=== PATIENT | male | born 1985 | race Caucasian/White ===

== ENCOUNTER 2018-01-24 09:09 | Emergency (ER) | payer SELFPAY ==
[2018-01-24] MEDS ORDERED: NA CHLORIDE 0.9% 1,000 ML ONE ×2 (09:33→09:55)
[2018-01-24 09:56] LABS: Urine Blood TRACE (NEG); Urine Glucose NEGATIVE (NEG); Urine Protein NEGATIVE (NEG); Urine pH 5.5 (5.0-7.0)
[2018-01-24 10:05] LABS: Absolute Lymphocytes (CBC) 1.9 K/uL (0.7-4.9); Absolute Monocytes 0.7 K/uL (0.1-1.3); Absolute Neutrophil 4.3 K/uL (1.8-8.0); Basophils % 0.3 % (0-1.3); Eosinophils % 2.2 % (0-4.4); Hematocrit 47.5 % (39.6-49.0); Lymphocytes % 27.2 % (15.3-44.8); MCH 30.7 pg (27.0-35.0); RBC Red Blood Cell Count 5.16 M/uL (4.33-5.43)
[2018-01-24 10:11] LABS: Bicarbonate 31 mEq/L (21-31); Glucose Level 69 mg/dL (65-120); Sodium Level 138 mEq/L (135-145)
[2018-01-24 10:18] LABS: ALT/SGPT 33 IU/L (10-60); AST/SGOT 31 IU/L (10-42); Albumin 4.7 g/dL (3.2-5.5); Alkaline Phosphatase 84 IU/L (42-121); BUN Blood Urea Nitrogen 17 mg/dL (6-20); Bilirubin Direct < 0.1 mg/dL (0-0.2); Bilirubin Total 0.4 mg/dL (0.3-1.2); Creatine Phosphokinase 86 IU/L (22-269); Protein, Total 8.2 g/dL (6.0-8.3)
[2018-01-24 10:21] LABS: CKMB Creatine Kinase MB 2.2 ng/ml (0.3-4.0)
--- NOTE | 2018-01-24 10:31 | RAD REPORT ---
EXAM DESCRIPTION: RAD - Chest Single View - 01/24/2018 10:06 am CLINICAL HISTORY: Cough, weakness and dizziness, shortness of breath COMPARISON: None. TECHNIQUE: AP portable chest image was obtained 0958 hours . FINDINGS: Lungs are clear. Heart and vasculature are normal. No measurable pleural effusion and no p neumothorax. No gross bony abnormality seen. No acute aortic findings suspected. IMPRESSION: No acute cardiopulmonary process.
--- NOTE | 2018-01-24 10:52 | ER ---
Nurse's Notes [facility] Name: Aston Conti Age: 32 yrs Sex: Male : 1985 Arrival Date: 01/24/2018 Time: 09:12 Bed 14 Private MD: Unknown, Unknown Diagnosis: Dehydration Presentation: 01/24 09:20 Presenting complaint: Patient states: Lightheaded and dizzy after working outside all hb day . Pt also reports N/V over the weekend but has resolved. Transition of care: patient was not received from another setting of care. Onset of symptoms was January 20, 2018. Risk Assessment: Do you want to hurt yourself or someone else? Patient reports no desire to harm self or others. Initial Sepsis Screen: Does the patient meet any 2 criteria? No. Patient's initial sepsis screen is negative. Does the patient have a suspected source of infection? No. Patient's initial sepsis screen is negative. Care prior to arrival: None. 09:20 Method Of Arrival: Ambulatory 09:20 Acuity: SONG 3 hb Historical: - Allergies: 09:22 No Known Allergies; hb - Immunization history:: Adult Immunizations up to date. - Social history:: Smoking status: Patient uses tobacco products, smokes one-half pack cigarettes per day. - Ebola Screening: : No symptoms or risks identified at this time. Screenin:33 Abuse screen: Denies threats or abuse. Denies injuries from another. Nutritional ph screening: No deficits noted. Tuberculosis screening: No symptoms or risk factors identified. Fall Risk None identified. Assessment: 09:30 General: Appears in no apparent distress. comfortable, slender, Behavior is calm, ph cooperative, appropriate for age, Denies fever, feeling ill. Pain: Denies pain. Neuro: Level of Consciousness is awake, alert, obeys commands, Oriented to person, place, time, situation, Reports dizziness, general weakness. Cardiovascular: Capillary refill < 3 seconds in bilateral fingers Patient's skin is warm and dry. Respiratory: Airway is patent Respiratory effort is even, unlabored, Respiratory pattern is regular, symmetrical. GI: Reports nausea, vomiting, since Wednesday. Derm: Skin is intact, Skin is pink, warm \T\ dry. Musculoskeletal: Circulation, motion, and sensation intact. Range of motion: intact in all extremities. 10:32 Reassessment: Patient appears in no apparent distress at this time. Patient and/or ph family updated on plan of care and expected duration. Pain level reassessed. Patient is alert, oriented x 3, equal unlabored respirations, skin warm/dry/pink. Pt resting quietly, awaiting lab and radiology results, family at bedside Patient denies pain at this time. 11:15 Reassessment: Patient appears in no apparent distress at this time. Patient and/or ph family updated on plan of care and expected duration. Pain level reassessed. Patient is alert, oriented x 3, equal unlabored respirations, skin warm/dry/pink. Pt resting quietly, awaiting completion of IV fluids before d/c. Vital Signs: 09:22 BP 95 / 73; Pulse 88; Resp 16; Temp 97.7; Pulse Ox 100% on R/A; Weight 77.11 kg; Height hb 6 ft. 3 in. (190.50 cm); Pain 0/10; 10:34 BP 114 / 79; Pulse 65; Resp 16; Pulse Ox 100% on R/A; ph 11:18 BP 96 / 82; Pulse 73; Resp 18; Temp 97.9; Pulse Ox 100% on R/A; ph 09:22 Body Mass Index 21.25 (77.11 kg, 190.50 cm) hb ED Course: 09:12 Patient arrived in ED. sb2 09:12 Unknown, Unknown is Private Physician. sb2 09:21 Triage completed. hb 09:22 Arm band placed on left wrist. hb 09:28 Josh Brooks NP is PHCP. pm1 09:28 Franklyn Casey MD is Attending Physician. pm1 09:32 Charleen Contreras, RN is Primary Nurse. ph 09:52 EKG done, by field artillery targeting technician. reviewed by Franklyn Casey MD. sm3 10:06 XRAY Chest (1 view) In Process Unspecified. EDMS 10:33 Patient has correct armband on for positive identification. Placed in gown. Bed in low ph position. Call light in reach. Side rails up X 1. Pulse ox on. NIBP on. Warm blanket given. Pillow given. 11:18 No provider procedures requiring assistance completed. ph 11:44 IV discontinued, intact, bleeding controlled, No redness/swelling at site. Pressure ph dressing applied. Administered Medications: 09:50 Drug: NS 0.9% 1000 ml Route: IV; Rate: 1 bolus; Site: right antecubital; ph 11:40 Follow up: Response: No adverse reaction; IV Status: Completed infusion ph 10:03 Drug: NS 0.9% 1000 ml Route: IV; Rate: 1 bolus; Site: right antecubital; ph 11:40 Follow up: Response: No adverse reaction; IV Status: Completed infusion ph Outcome: 10:52 Discharge ordered by MD. pm1 11:43 Discharged to home ambulatory, with family. ph 11:43 Condition: improved 11:43 Discharge instructions given to patient, family, Instructed on discharge instructions, follow up and referral plans. Demonstrated understanding of instructions, follow-up care. 11:44 Patient left the ED. ph Signatures: Dispatcher [employer] EDCharleen Zamorano RN RN Josh Brooks, NILE DIGITAL MEDIA ANALYST pm1 Homa Donovan RN RN Pilar Rangel sb2 Carmelina Torres sm3 Corrections: (The following items were deleted from the chart) 09:23 09:20 Presenting complaint: Patient states: Lightheaded and dizzy after working outside hb all day hb
--- NOTE | 2018-01-24 10:52 | EDPHYS ---
Physician Documentation [facility] Name: Aston Conti Age: 32 yrs Sex: Male : 1985 Arrival Date: 01/24/2018 Time: 09:12 Bed 14 Private MD: Unknown, Unknown ED Physician Franklyn Casey HPI: 01/24 10:00 This 32 yrs old Male presents to ER via Ambulatory with complaints of Heat pm1 Exposure. 10:00 Patient with complaints of heat exposure on , 4 days ago. Patient works in as pm1 hazardous waste technician. He was working in an attic too long on and felt hot and dehydrated. Patient had some nausea and vomiting that resolved a few days ago. No chest pain or shortness of breath. No headache. No urinary symptoms. Historical: - Allergies: 09:22 No Known Allergies; hb - Immunization history:: Adult Immunizations up to date. - Social history:: Smoking status: Patient uses tobacco products, smokes one-half pack cigarettes per day. - Ebola Screening: : No symptoms or risks identified at this time. ROS: 10:00 Constitutional: Negative for fever, chills, and weight loss, Eyes: Negative for injury, pm1 pain, redness, and discharge, ENT: Negative for injury, pain, and discharge, Neck: Negative for injury, pain, and swelling, Cardiovascular: Negative for chest pain, palpitations, and edema, Respiratory: Negative for shortness of breath, cough, wheezing, and pleuritic chest pain, Abdomen/GI: Negative for abdominal pain, nausea, vomiting, diarrhea, and constipation, Back: Negative for injury and pain, MS/Extremity: Negative for injury and deformity, Skin: Negative for injury, rash, and discoloration, Neuro: Negative for headache, weakness, numbness, tingling, and seizure. Exam: 10:00 Constitutional: This is a well developed, well nourished patient who is awake, alert, pm1 and in no acute distress. Head/Face: Normocephalic, atraumatic. Neck: Trachea midline, no thyromegaly or masses palpated, and no cervical lymphadenopathy. Supple, full range of motion without nuchal rigidity, or vertebral point tenderness. No Meningismus. Chest/axilla: Normal chest wall appearance and motion. Nontender with no deformity. No lesions are appreciated. Cardiovascular: Regular rate and rhythm with a normal S1 and S2. No gallops, murmurs, or rubs. No pulse deficits. Respiratory: Lungs have equal breath sounds bilaterally, clear to auscultation and percussion. No rales, rhonchi or wheezes noted. No increased work of breathing, no retractions or nasal flaring. Abdomen/GI: Soft, non-tender, with normal bowel sounds. No distension or tympany. No guarding or rebound. No evidence of tenderness throughout. Back: No spinal tenderness. No costovertebral tenderness. Full range of motion. Skin: Warm, dry with normal turgor. Normal color with no rashes, no lesions, and no evidence of cellulitis. MS/ Extremity: Pulses equal, no cyanosis. Neurovascular intact. Full, normal range of motion. Vital Signs: 09:22 BP 95 / 73; Pulse 88; Resp 16; Temp 97.7; Pulse Ox 100% on R/A; Weight 77.11 kg; Height hb 6 ft. 3 in. (190.50 cm); Pain 0/10; 10:34 BP 114 / 79; Pulse 65; Resp 16; Pulse Ox 100% on R/A; ph 11:18 BP 96 / 82; Pulse 73; Resp 18; Temp 97.9; Pulse Ox 100% on R/A; ph 09:22 Body Mass Index 21.25 (77.11 kg, 190.50 cm) hb MDM: 09:29 Patient medically screened. pm1 10:45 ED course: Patient fells better after fluid infusion and feels ready to go home. pm1 10:51 Data reviewed: vital signs. Data interpreted: Pulse oximetry: on room air is 100 %. pm1 Interpretation: normal. Counseling: I had a detailed discussion with the patient and/or guardian regarding: the historical points, exam findings, and any diagnostic results supporting the discharge/admit diagnosis, lab results, radiology results, the need for outpatient follow up, to return to the emergency department if symptoms worsen or persist or if there are any questions or concerns that arise at home. 01/24 09:31 Order name: Basic Metabolic Panel; Complete Time: 10:24 [facility] 01/24 09:31 Order name: BNP; Complete Time: 10:24 [facility] 01/24 09:31 Order name: CBC with Diff; Complete Time: 10:24 [facility] 01/24 09:31 Order name: Ckmb; Complete Time: 10:24 [facility] 01/24 09:31 Order name: CPK; Complete Time: 10:24 [facility] 01/24 09:31 Order name: LFT's; Complete Time: 10:24 [facility] 01/24 09:31 Order name: Magnesium; Complete Time: 10:24 [facility] 01/24 09:31 Order name: Troponin (emerg Dept Use Only); Complete Time: 10:24 [facility] 01/24 09:31 Order name: XRAY Chest (1 view); Complete Time: 10:35 [facility] 01/24 09:31 Order name: EKG; Complete Time: 09:32 [facility] 01/24 09:31 Order name: Cardiac monitoring; Complete Time: 09:32 [facility] 01/24 09:44 Order name: Urine Dipstick--Ancillary (enter results); Complete Time: 09:59 01/24 09:31 Order name: IV Saline Lock; Complete Time: 10:03 [facility] 01/24 09:31 Order name: Labs collected and sent; Complete Time: 10:03 [facility] 01/24 09:31 Order name: O2 Per Protocol; Complete Time: 09:33 [facility] 01/24 09:31 Order name: O2 Sat Monitoring; Complete Time: 09:33 [facility] 01/24 09:31 Order name: Urine Dipstick-Ancillary (obtain specimen); Complete Time: 09:33 [facility] Administered Medications: 09:50 Drug: NS 0.9% 1000 ml Route: IV; Rate: 1 bolus; Site: right antecubital; ph 11:40 Follow up: Response: No adverse reaction; IV Status: Completed infusion ph 10:03 Drug: NS 0.9% 1000 ml Route: IV; Rate: 1 bolus; Site: right antecubital; ph 11:40 Follow up: Response: No adverse reaction; IV Status: Completed infusion ph Disposition: 01/25 10:48 Co-signature as Attending Physician, Franklyn Casey MD I agree with the assessment and [facility] plan of care. Disposition: 01/24/18 10:52 Discharged to Home. Impression: Dehydration. - Condition is Stable. - Discharge Instructions: Dehydration, Adult, Rehydration, Adult. - Medication Reconciliation Form, Thank You Letter form. - Follow up: Emergency Department; When: As needed; Reason: Worsening of condition. Follow up: Private Physician; When: 2 - 3 days; Reason: Recheck today's complaints, Continuance of care, Re-evaluation by your physician. - Problem is new. - Symptoms have improved. Signatures: Dispatcher [employer] EDMS Franklyn Casey, Charleen Henry MD, cha, RN RN ph Josh Brooks, COSTUME RENTAL CLERK COSTUME RENTAL CLERK pm1 Homa Donovan RN RN Corrections: (The following items were deleted from the chart) 01/24 11:44 10:52 01/24/2018 10:52 Discharged to Home. Impression: Dehydration. Condition is ph Stable. Forms are Medication Reconciliation Form, Thank You Letter, Antibiotic Education, Prescription Opioid Use. Follow up: Emergency Department; When: As needed; Reason: Worsening of condition. Follow up: Private Physician; When: 2 - 3 days; Reason: Recheck today's complaints, Continuance of care, Re-evaluation by your physician. Problem is new. Symptoms have improved. pm1
[2018-01-24 12:00] VITALS: O2SAT 100
[2018-01-24 12:02] VITALS: BP 96/82; TEMP 97.9
--- NOTE | 2018-01-24 16:11 | EKG ---
Test Date: 2018-01-24 Test Time: 09:52:29 Spa Director/Finance: EILEEN MEASUREMENT RESULTS: Intervals: Rate: 67 FL: 166 QRSD: 94 QT: 388 QTc: 409 [place]: P: 77 FL: 166 QRS: 70 T: 71 INTERPRETIVE STATEMENTS: Normal sinus rhythm with sinus arrhythmia Normal ECG No previous ECG available for comparison Electronically Signed On 01-24-18 16:11:10 CDT by Kole Oseguera
== END 2018-01-24 11:44 | disposition home or self-care (01) ==
LOC: ER 09:09
DX: E86.0 Dehydration (principal); F17.210 Nicotine dependence, cigarettes, uncomplicated
CPT/HCPCS: 36415; 71045; 80048; 80076; 81003; 82550; 82553; 83735; 83880; 84484; 85025; 93005; 96360; 96361; 99284; J7030

== ENCOUNTER 2022-04-30 13:28 | Emergency (ER) | payer OTHER ==
--- OUTSIDE RECORDS SUMMARY | 2022-04-30 13:31 | XMS REPORT | Continuity of Care Document ---
:1985 Author Organization [facility] t Address [address] [place] [address] Care Team Providers Name Role Phone [facility], [facility] [facility] Primary Care Physician Unavailable Johanne Courtney Attending Clinician JOHANNE COUGHLIN Attending Clinician Unavailable JOHANNE COUGHLIN Admitting Clinician Unavailable Payers Payer Name Policy Type Policy Number Effective Date Expiration Date S ource Problems Condition Condition Condition Status Onset Resolution Last Treating Co mments Source Name Details Category Date Date Treatment Clinician Date No known No known Disease Unive rs active active ity of problems problems [facility] Allergies, Adverse Reactions, Alerts Allergy Allergy Status Severity Reaction(s) Onset Inactive Treating Comm ents Source Name Type Date Date Clinician NO KNOWN Drug Active Univers ALLERGIE Class ity of S [facility] Social History Social Habit Start Date Stop Date Quantity Comments Source Exposure to Not sure [facility] SARS-CoV-2 (event) Medica l Branch Sex Assigned At [birth year] [facility] 00:00:00 00:00:00 [facility] Smoking Status Start Date Stop Date Source Unknown if ever smoked [facility] Medications Ordered Filled Start Stop Current Ordering Indication Dosage Frequency Signature Comments Components Source Medication Medication Date Date Medication? Clinician (SIG) Name Name penicillin 2021- No 1.210 1.2 Unive rs g 2-18 02-18 Million ity of benzathine 01:45[place] 01[place]01 [place] (BICILLIN 00 :00 Intramuscu Medi keshav L-A) lar, ONCE, Branch injection 1 dose, On 1.2 Million Nano Units 10/02/21 at 1945, CHUCKIE
Re ason for Anti-Infec tive: Documented Infection< br>Documen reese Infection Site: HEENT
D uration of Therapy: 7 days ondansetron No 4mg 4 mg, Univ ers (ZOFRAN-ODT 10-03 Oral, ity of ) 00:45: 23:46 ONCE, 1 [place] disintegrat 00 :00 dose, On [facility] ing tablet Nano Branch 4 mg 10/02/21 at 1845, CHUCKIE acetaminoph No 1000mg 1,000 mg, Univers en 10-03 Oral, ity of (TYLENOL) 00:45: 23:46 ONCE, [place] tablet 00 :00 dose, On Medical 1,000 mg Nano Branch 10/02/21 at 1845, CHUCKIE ibuprofen No 800mg 800 mg, Uni vers (IBU) 10-03 Oral, ity of tablet 800 00:45: 23:46 ONCE, 1 [place] as mg 00 :00 dose, On Medical Nano Branch 10/02/21 at 1845, CHUCKIE oseltamivir 2021- No [id number] 75mg Take 1 Univers 75 mg 10-02 capsule by ity of capsule 00:00: 05:59 mouth 2 [place] 00 :00 (two) Medical times [place] daily for 5 days. Vital Signs Vital Name Observation Time Observation Value Comments Source Systolic blood 2021-10-03 01:04:20 91 [facility]Hg[facility] Diastolic blood 2021-10-03 01:04:20 57 mm[Hg] [facility] Heart rate 2021-10-03 01:04:20 92 /min [facility] Body temperature 2021-10-03 01:04:20 38.39 Li [facility] Respiratory rate 2021-10-03 01:04:20 20 /min [facility] Oxygen saturation in 2021-10-03 01:04:20 96 /min [facility] Arterial blood by [facility] Pulse oximetry Branch Body height 2021-10-02 23:11:00 193 cm [facility] Body weight 2021-10-02 23:11:00 90.719 kg [facility] BMI 2021-10-02 23:11:00 24.34 kg/m2 [facility] Procedures Procedure Date / Time Performed Performing Clinician Sourc e XR CHEST 2 VW 2021-10-03 00:16:32 Johanne Coughlin [facility] RAPID STREP SCREEN 2021-10-02 23:48:00 Johanne Coughlin [facility] FOR GROUP A [facility] RAPID INFLUENZA A/B 2021-10-02 23:48:00 Johanne Coughlin [facility] COVID-19 (ID NOW 2021-10-02 23:48:00 Johanne Coughlin [facility] RAPID TESTING) [facility] Encounters Start End Encounter Admission Attending Care Care Encounter Source Date/Time Date/Time Type Type Clinicians Facility Department ID 2021-10-02 2021-10-02 Emergency Madyson [facility] [id number] Univers 17:16:00 19:24:00 Johanne MATTHEWS [id number] i [facility] [id number] [facility] [id number] [facility] 084 Branch 2021-10-02 2021-10-02 Emergency X MADYSON [facility] ERT [id number] Univers 17:16:00 19:24:00 JOHANNE mena [facility] Results This patient has no known results.
[2022-04-30] MEDS ORDERED: LIDOCAINE 2% W/EPI 1:200,000 MPF 20 ML VIAL IM ONE (15:34)
--- NOTE | 2022-04-30 16:00 | EDPHYS ---
Physician Documentation [facility] Name: Aston Conti Age: 37 yrs Sex: Male : 1985 Arrival Date: 04/30/2022 Time: 13:29 Bed Treatment Private MD: ED Physician Franklyn Casey HPI: 04/30 14:32 This 37 yrs old Male presents to ER via Ambulatory with complaints of Insect Bite. cp 14:32 The patient presents with an abscess of the anterior aspect of left ankle. cp 14:32 Description: erythematous, swollen. Onset: The symptoms/episode began/occurred 5 day(s) cp ago. Possible cause(s): spider bite. Associated signs and symptoms: The patient has no apparent associated signs or symptoms. Severity of symptoms: in the emergency department the symptoms are unchanged, despite home interventions. Historical: - Allergies: 14:09 No Known Allergies; tw2 - Home Meds: 14:09 None [Active]; tw2 - PMHx: 14:09 None; tw2 - PSHx: 14:09 colon surgery; tw2 - Immunization history:: Last tetanus immunization: < 5 years ago. - Social history:: Smoking status: Patient reports the use of cigarette tobacco products, smokes one-half pack cigarettes per day. ROS: 14:35 Skin: Positive for abscess, of the anterior aspect of left ankle. cp 14:35 Constitutional: Negative for body aches, chills, fever, poor PO intake. cp 14:35 Cardiovascular: Negative for chest pain, palpitations. cp 14:35 Respiratory: Negative for cough, shortness of breath, wheezing. 14:35 Abdomen/GI: Negative for abdominal pain, nausea, vomiting, and diarrhea. 14:35 All other systems are negative. Exam: 14:40 Constitutional: The patient appears in no acute distress, alert, awake, non-toxic, well cp developed, well nourished. 14:40 Head/Face: Normocephalic, atraumatic. cp 14:40 Chest/axilla: Inspection: normal. 14:40 Cardiovascular: Rate: normal. 14:40 Respiratory: the patient does not display signs of respiratory distress, Respirations: normal, no use of accessory muscles, no retractions. 14:40 Abdomen/GI: Inspection: abdomen appears normal. 14:40 Skin: abscess, that is small, of the anterior aspect of left ankle, with mild surrounding erythema. Vital Signs: 14:07 BP 118 / 64; Pulse 76; Resp 17; Temp 98.6(TE); Pulse Ox 100% on R/A; Weight 81.65 kg tw2 (R); Height 6 ft. 4 in. (193.04 cm); 16:05 BP 121 / 68; Pulse 78; Resp 18; Pulse Ox 100% ; kb3 14:07 Body Mass Index 21.91 (81.65 kg, 193.04 cm) tw2 MDM: 14:49 Patient medically screened. [facility] 16:00 Data reviewed: vital signs, nurses notes. cp 16:00 Counseling: I had a detailed discussion with the patient and/or guardian regarding: the cp historical points, exam findings, and any diagnostic results supporting the discharge/admit diagnosis, to return to the emergency department if symptoms worsen or persist or if there are any questions or concerns that arise at home. Response to treatment: the patient's symptoms have mildly improved after treatment, and as a result, I will discharge patient. ED course: attempt to drain area unsuccessful as no purulent drainage expressed. Will discharge to home for continued monitoring. 04/30 14:58 Order name: I\T\D Setup; Complete Time: 15:59 cp Administered Medications: 15:40 Drug: Lidocaine-Epinephrine -1%: (1:100,000) 5 ml {Note: Administered by Franklyn RODRIGUEZ kb3 during I\T\D procedure.} Volume: 20 ml; Route: Infiltration; Disposition Summary: 04/30/22 16:00 Discharge Ordered Location: Home cp Problem: new cp Symptoms: have improved cp Condition: Stable cp Diagnosis - Cellulitis of left lower limb - left ankle cp Followup: cp - With: Private Physician - When: 1 - 2 days - Reason: Worsening of condition Discharge Instructions: - Discharge Summary Sheet cp - Cellulitis, Adult cp Forms: - Medication Reconciliation Form cp - Thank You Letter cp - Antibiotic Education cp - Prescription Opioid Use cp Prescriptions: - Bactrim DS 800-160 mg Oral Tablet - take 1 tablet by ORAL route every 12 hours for 10 days; 20 tablet; Refills: 0, cp Product Selection Permitted Signatures: Franklyn Casey MD MD cha Page, Corey, PA PA cp Wise, Tara, RN RN tw2 Carlo, Khushi, RN RN kb3
--- NOTE | 2022-04-30 16:00 | ER ---
Nurse's Notes [facility] Name: Aston Conti Age: 37 yrs Sex: Male : 1985 Arrival Date: 04/30/2022 Time: 13:29 Bed Treatment Private MD: Diagnosis: Cellulitis of left lower limb-left ankle Presentation: 04/30 14:07 Chief complaint: Patient states: i have this spot on my LEFT ankle. i need to get it tw2 lanced open. its been going on 5 days. we were working in an attic and i think it was a spider. when it happened you could see the puncture site. i have been putting Hylans drawing salve on it. Coronavirus screen: At this time, the client does not indicate any symptoms associated with coronavirus-19. Ebola Screen: Patient denies travel to an Ebola-affected area in the 21 days before illness onset. Initial Sepsis Screen: Does the patient meet any 2 criteria? No. Patient's initial sepsis screen is negative. Does the patient have a suspected source of infection? No. Patient's initial sepsis screen is negative. Risk Assessment: Do you want to hurt yourself or someone else? Patient reports no desire to harm self or others. Onset of symptoms was April 30, 2022. 14:07 Method Of Arrival: Ambulatory tw2 14:07 Acuity: SONG 4 tw2 Triage Assessment: 14:10 Bite description: bite sustained to anterior aspect of left ankle by a spider, animal tw2 information: vaccination(s) is not applicable. General: Appears in no apparent distress. Behavior is calm, cooperative, appropriate for age. Pain: Complains of pain in anterior aspect of left ankle. Historical: - Allergies: 14:09 No Known Allergies; tw2 - Home Meds: 14:09 None [Active]; tw2 - PMHx: 14:09 None; tw2 - PSHx: 14:09 colon surgery; tw2 - Immunization history:: Last tetanus immunization: < 5 years ago. - Social history:: Smoking status: Patient reports the use of cigarette tobacco products, smokes one-half pack cigarettes per day. Screenin:30 Abuse screen: Denies threats or abuse. Denies injuries from another. Nutritional kb3 screening: No deficits noted. Tuberculosis screening: No symptoms or risk factors identified. Fall Risk None identified. Assessment: 14:30 General: Appears in no apparent distress. comfortable, Behavior is calm, cooperative, kb3 Received care of pt from [facility] without distress. Pt reports he was stung on the left ankle by an insect, possibly a spider while working in an attic 5 days ago. Pt states he has been cleaning the wound and putting a Meet on it at home. 0.5cm round wound with scant amount of yellow drainage surrounded by a quarter-sized area of purple bruising noted to the anterior aspect of the left ankle. Pt reports he squeezed it at home to drain pus over the last 5 days.. 14:30 Derm: Skin is intact, Skin is pink, warm \T\ dry. Abscess located on dorsum of left foot kb3 is quarter sized, has purulent drainage, is raised, was lanced by patient prior to arrival. Vital Signs: 14:07 BP 118 / 64; Pulse 76; Resp 17; Temp 98.6(TE); Pulse Ox 100% on R/A; Weight 81.65 kg tw2 (R); Height 6 ft. 4 in. (193.04 cm); 16:05 BP 121 / 68; Pulse 78; Resp 18; Pulse Ox 100% ; kb3 14:07 Body Mass Index 21.91 (81.65 kg, 193.04 cm) tw2 ED Course: 13:29 Patient arrived in ED. mr 14:06 Arm band placed on. tw2 14:09 Triage completed. tw2 14:13 Franklyn Fernandes PA is PHCP. cp 14:13 Franklyn Casey MD is Attending Physician. cp 14:30 Patient has correct armband on for positive identification. Bed in low position. Call kb3 light in reach. 14:30 Assist provider with I \T\ D: Set up I\T\D tray. Patient did not have IV access during this kb 3 emergency room visit. 14:49 Khushi Matos, JOSTIN is Primary Nurse. kb3 16:12 Dressings: 4X4s X 1; dorsum of left foot. kb3 Administered Medications: 15:40 Drug: Lidocaine-Epinephrine -1%: (1:100,000) 5 ml {Note: Administered by Franklyn RODRIGUEZ kb3 during I\T\D procedure.} Volume: 20 ml; Route: Infiltration; Medication: 14:30 VIS not applicable for this client. kb3 Outcome: 16:00 Discharge ordered by MD. posada 16:12 Discharged to home with family. kb3 16:12 Condition: stable 16:12 Discharge instructions given to patient, Instructed on discharge instructions, follow up and referral plans. wound care, Demonstrated understanding of instructions, follow-up care, medications, wound care, Prescriptions given X 1. 16:13 Patient left the ED. kb3 Signatures: Iman Agustin mr Franklyn Fernandes PA PA cp Wise, Tara, RN RN tw2 Khushi Matos, RN RN kb3
[2022-05-01 19:05] VITALS: TEMP 98.6; O2SAT 100
[2022-05-01 19:12] VITALS: BP 121/68
== END 2022-04-30 16:13 | disposition home or self-care (01) ==
LOC: ER 13:28
PROC: 0H9NXZZ Drainage of Left Foot Skin, External Approach (ICD-10-PCS; principal; 2022-04-30)
DX: L03.116 Cellulitis of left lower limb (principal); F17.210 Nicotine dependence, cigarettes, uncomplicated
CPT/HCPCS: 99283

== ENCOUNTER 2022-07-06 22:25 | Emergency (ER) | payer OTHER ==
--- OUTSIDE RECORDS SUMMARY | 2022-07-06 22:28 | XMS REPORT | Continuity of Care Document ---
:1985 Author Organization [facility] t Address [address] [place] [address] Care Team Providers Name Role Phone CTR, [facility] Primary Care Physician Unavailable [id number] Attending Clinician Unavailable RUDDY HOOKER Attending Clinician Unavailable Ruddy Hooker Rahil Attending Clinician Unavailable KATHLEEN HUERTA Attending Clinician Unavailable Brandi Courtney Attending Clinician BRANDI COUGHLIN Attending Clinician Unavailable [id number] Admitting Clinician Unavailable Ruddy Hooker Rahil Admitting Clinician Unavailable BRANDI COUGHLIN Admitting Clinician Unavailable Payers Payer Name Policy Type Policy Number Effective Date Expiration Date Juliet TORRES [id number] 2021 00:00:00 TRI TRI [id number] Problems Condition Condition Condition Status Onset Resolution Last Treating Co mments Source Name Details Category Date Date Treatment Clinician Date No known No known Disease Unive rs active active ity of problems problems [facility] Allergies, Adverse Reactions, Alerts Allergy Allergy Status Severity Reaction(s) Onset Inactive Treating Comm ents Source Name Type Date Date Clinician NKA Allergy Active 2021-08 ENCCLR 08-20 10:49: 23 NO KNOWN Drug Active Univers ALLERGIE Class ity of S [facility] Social History Social Habit Start Date Stop Date Quantity Comments Source Exposure to Not sure [facility] SARS-CoV-2 (event) Medica l Branch Sex Assigned At [birth year] [facility] 00:00:00 00:00:00 Medical Branch Smoking Status Start Date Stop Date Source Unknown if ever smoked [facility] Medications Ordered Filled Start Stop Current Ordering Indication Dosage Frequency Signature Comments Components Source Medication Medication Date Date Medication? Clinician (SIG) Name Name penicillin 2021- No 1.210 1.2 Unive rs g 10-03 Million ity of benzathine 01:45: 01[place]01 [place] (BIC[place] 00 :00 Intramuscu Medi keshav L-A) lar, ONCE, Branch injection 1 dose, On 1.2 Million Nano Units 10/02/21 at 1945, CHUCKIE
Re ason for Anti-Infec tive: Documented Infection< br>Documen reese Infection Site: HEENT
D uration of Therapy: 7 days ondansetron 2021- No 4mg 4 mg, Univ ers (ZOFRAN-ODT 10-03 Oral, ity of ) 00:45: 23:46 ONCE, 1 [place] disintegrat 00 :00 dose, On Medi keshav ing tablet Nano Branch 4 mg 10/02/21 at 1845, CHUCKIE acetaminoph 2021- No 1000mg 1,000 mg, Univers en 10-03 [...] 10/02/21 at 1845, CHUCKIE oseltamivir 2021- No [id number] 75mg Take 1 Univers 75 mg 10-02 capsule by ity of capsule 00:00: 05:59 mouth 2 [place] 00 :00 (two) Medical times Branch daily for 5 days. Vital Signs Vital Name Observation Time Observation Value Comments Source Systolic blood 2021-10-03 01:04:20 91 mm[Hg] Univer sity of pressure [facility] Diastolic blood 2021-10-03 01:04:20 57 mm[Hg] Unive rsity of [facility] Heart rate 2021-10-03 01:04:20 92 /min [facility] Body temperature 2021-10-03 01:04:20 38.39 Li [facility] Respiratory rate 2021-10-03 01:04:20 20 /min [facility] Oxygen saturation in 2021-10-03 01:04:20 96 /min [facility] Arterial blood by [facility] Pulse oximetry [place] Body height 2021-10-02 23:11:00 193 cm [facility] Body weight 2021-10-02 23:11:00 90.719 kg [facility] BMI 2021-10-02 23:11:00 24.34 kg/m2 [facility] Procedures Procedure Date / Time Performed Performing Clinician Sourc e XR CHEST 2 VW 2021-10-03 00:16:32 Brandi Coughlin [facility] RAPID STREP SCREEN 2021-10-02 23:48:[address] [facility] FOR GROUP A [facility] RAPID INFLUENZA A/B 2021-10-02 23:48:00 Brandi Coughlin [facility] COVID-19 (ID NOW 2021-10-02 23:48:00 Brandi Coughlin [facility] RAPID TESTING) [facility] Encounters Start End Encounter Admission Attending Care Care Encounter Source Date/Time Date/Time Type Type Clinicians Facility Department ID 2022-07-03 Outpatient [facility] [id number] [place] 11:24:05 [id number] [facility] 2022-06-25 Outpatient [facility] [id number] [place] 10:20:32 [id number] [facility] 2022-05-27 Outpatient [id number] [facility] S[facility] [id number] [facility] 08:31:01 [facility] [place] 2022-05-26 Outpatient 3 [id number] [facility] REF [id number] [facility] 16:04:47 [facility] [place] 2022-05-11 Outpatient [facility] [id number] [place] 14:07:52 [id number] [facility] 2022-06-20 2022-06-20 Outpatient NEW ARELY HOOKERCLR ENCCLR [id number] [facility] 00:00:00 00:00:00 ADMISSION RUDDY 2022-05-28 2022-06-19 Inpatient 3 ARELY HookerPL [facility] [id number] [facility] 16:57:00 11:45:00 [facility] [place] [facility] [place] 2022-05-07 2022-05-07 Outpatient [place], [facility] [id number] [place] 07:30:00 07:30:00 [facility] 2021-10-02 2021-10-02 Emergency Madyson [facility] [id number] Univers 17:16:00 19:24:00 Brandi MATTHEWS [id number] i ty [facility] [id number] [facility] [id number] [place] [id number] Branch 2021-10-02 2021-10-02 Emergency X MADYSON [facility] ERT [id number] Univers 17:16:00 19:24:00 BRANDI mena of [facility] Results This patient has no known results.
[2022-07-06] MEDS ORDERED: NA CHLORIDE 0.9% 1,000 ML ONE (23:17)
[2022-07-06] MEDS ORDERED: DIPHENHYDRAMINE 50 MG/ML VIAL ONE (23:17)
[2022-07-06] MEDS ORDERED: KETOROLAC 30 MG/ML INJ ONE (23:17)
[2022-07-06] MEDS ORDERED: METOCLOPRAMIDE 10 MG/2mL INJ ONE (23:17)
[2022-07-07] MEDS ORDERED: NA CHLORIDE 0.9% 100 ML IV ONE (01:25)
[2022-07-07] MEDS ORDERED: DIAZEPAM 5 MG TABLET ONE (01:44)
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
--- NOTE | 2022-07-07 01:45 | EDPHYS ---
Physician Documentation [facility] Name: Aston Conti Age: 37 yrs Sex: Male : 1985 Arrival Date: 07/06/2022 Time: 22:28 Bed 5 Private MD: ED Physician Franklyn Casey HPI: 07/06 23:06 This 37 yrs old Male presents to ER via Wheelchair with complaints of tang Headache, Pain All Over. 23:06 The patient complains of pain to the top of head, forehead, left frontal area, left tang side of the back of head, left occipital area, left base of the skull, right frontal area, right side of the back of head, right occipital area and right base of the skull. The patient describes the headache as constant. Onset: The symptoms/episode began/occurred 5 day(s) ago. Associated signs and symptoms: Pertinent positives: Photophobia. Severity of symptoms: At its worst the pain was moderate, in the emergency department the pain is unchanged. Headache History: The patient has had previous headaches and this one is different than previous episodes. The symptoms are alleviated by nothing. the symptoms are aggravated by nothing. The patient has experienced similar episodes in the past, several times. Historical: - Allergies: 22:42 No Known Allergies; kb3 - Home Meds: 22:42 gabapentin 300 mg oral tab daily [Active]; baclofen 10 mg Oral tab 1 tab 3 times per kb3 day [Active]; hydrocodone-acetaminophen 7.5-325 mg Oral tab 1 tab every 4 hours [Active]; ibuprofen 600 mg Oral tab 1 tab 3 times per day [Active]; acetaminophen 325 mg Oral tab 2 tabs every 6 hours [Active]; - PMHx: 22:42 Hypotension; kb3 - PSHx: 22:42 colon surgery; C2-C7 Fusion; T12-L4 Fusion; Spinal Cord injury; Facial Reconstruction; kb3 - Immunization history:: Adult Immunizations up to date, Client reports having NOT received the Covid vaccine. Last tetanus immunization: up to date. - Social history:: Smoking status: Patient denies any tobacco usage or history of. - Family history:: not pertinent. ROS: 23:07 Constitutional: Negative for fever, chills, and weight loss, Eyes: Negative for injury, tang pain, redness, and discharge, ENT: Negative for injury, pain, and discharge, Neck: Negative for injury, pain, and swelling, Cardiovascular: Negative for chest pain, palpitations, and edema, Respiratory: Negative for shortness of breath, cough, wheezing, and pleuritic chest pain, Abdomen/GI: Negative for abdominal pain, nausea, vomiting, diarrhea, and constipation, Back: Negative for injury and pain, : Negative for injury, bleeding, discharge, and swelling, MS/Extremity: Negative for injury and deformity, Skin: Negative for injury, rash, and discoloration, Psych: Negative for depression, anxiety, suicide ideation, homicidal ideation, and hallucinations, Allergy/Immunology: Negative for hives, rash, and allergies, Endocrine: Negative for neck swelling, polydipsia, polyuria, polyphagia, and marked weight changes, Hematologic/Lymphatic: Negative for swollen nodes, abnormal bleeding, and unusual bruising. 23:07 Neuro: Positive for headache, weakness, of the right arm and left arm. Exam: 23:07 Constitutional: This is a well developed, well nourished patient who is awake, alert, tang and in no acute distress. Head/Face: Normocephalic, atraumatic. Eyes: Pupils equal round and reactive to light, extra-ocular motions intact. Lids and lashes normal. Conjunctiva and sclera are non-icteric and not injected. Cornea within normal limits. Periorbital areas with no swelling, redness, or edema. ENT: Nares patent. No nasal discharge, no septal abnormalities noted. Tympanic membranes are normal and external auditory canals are clear. Oropharynx with no redness, swelling, or masses, exudates, or evidence of obstruction, uvula midline. Mucous membranes moist. Neck: Trachea midline, no thyromegaly or masses palpated, and no cervical lymphadenopathy. Supple, full range of motion without nuchal rigidity, or vertebral point tenderness. No Meningismus. Chest/axilla: Normal chest wall appearance and motion. Nontender with no deformity. No lesions are appreciated. Cardiovascular: Regular rate and rhythm with a normal S1 and S2. No gallops, murmurs, or rubs. Normal PMI, no JVD. No pulse deficits. Respiratory: Lungs have equal breath sounds bilaterally, clear to auscultation and percussion. No rales, rhonchi or wheezes noted. No increased work of breathing, no retractions or nasal flaring. Abdomen/GI: Soft, non-tender, with normal bowel sounds. No distension or tympany. No guarding or rebound. No evidence of tenderness throughout. Back: No spinal tenderness. No costovertebral tenderness. Full range of motion. Skin: Warm, dry with normal turgor. Normal color with no rashes, no lesions, and no evidence of cellulitis. MS/ Extremity: Pulses equal, no cyanosis. Neurovascular intact. Full, normal range of motion. Psych: Awake, alert, with orientation to person, place and time. Behavior, mood, and affect are within normal limits. 23:07 Neuro: Orientation: is normal, appropriate for stated age, no acute changes, Mentation: is normal, appropriate for stated age, no acute changes, Memory: is normal, appropriate for stated age, no acute changes, Cranial nerves: grossly normal, is grossly normal based on the patient's age, no acute changes, Cerebellar function: no acute changes, Motor: Hypotonic in right leg and left leg. Gait: not tested. seizure activity, is not displayed by the patient. 23:28 ECG was reviewed by the Attending Physician. [facility] Vital Signs: 22:38 BP 87 / 58; Pulse 96; Resp 20; Temp 97.5; Pulse Ox 98% ; Weight 90.72 kg; Height 6 ft. kb3 4 in. (193.04 cm); Pain 6/10; 23:06 BP 91 / 58; vc1 22:38 Body Mass Index 24.34 (90.72 kg, 193.04 cm) kb3 Redmon Coma Score: 23:09 Eye Response: spontaneous(4). Verbal Response: oriented(5). Motor Response: obeys [facility] commands(6). Total: 15. MDM: 22:46 Patient medically screened. tang 23:09 Differential diagnosis: cluster headache, hyponatremia, intracerebral hemorrhage, tang migraine, subarachnoid bleed, subdural hematoma, temporal arteritis, tension headache, traumatic injuries, trigeminal neuralgia, vasomotor headache. Data reviewed: vital signs, nurses notes, lab test result(s), EKG, radiologic studies, CT scan, plain films. Data interpreted: child caregiver: rate is 96 beats/min, rhythm is regular, Pulse oximetry: on room air is 98 %. Test interpretation: by ED physician or midlevel provider: ECG, plain radiologic studies. Counseling: I had a detailed discussion with the patient and/or guardian regarding: the historical points, exam findings, and any diagnostic results supporting the discharge/admit diagnosis, lab results, radiology results. 07/07 01:45 ED course: AFTER MANY FAILED ATTEMPTS ON AN IV, PT REFUSED ANY FURTHER BLOOD WORK AND tang WANTED NO MORE IV ATTEMPTS. 07/06 23:05 Order name: XRAY Chest (1 view) [facility] 07/06 23:05 Order name: CT Head C Spine [facility] 07/06 23:05 Order name: EKG; Complete Time: 23:06 [facility] 07/06 23:05 Order name: Cardiac monitoring; Complete Time: 23:27 [facility] 07/06 23:05 Order name: EKG - Nurse/Tech; Complete Time: 23:27 [facility] 07/06 23:05 Order name: IV Saline Lock [facility] 07/06 23:05 Order name: Labs collected and sent [facility] 07/06 23:05 Order name: O2 Per Protocol; Complete Time: 23:29 [facility] 07/06 23:05 Order name: O2 Sat Monitoring; Complete Time: 23:28 [facility] 07/06 23:05 Order name: Oxygen; Complete Time: 23:28 [facility] 07/07 01:10 Order name: Urine Dipstick-Ancillary (obtain specimen) [facility] EC/21 23:28 Rate is 69 beats/min. Rhythm is regular. QRS [place] is Normal. IN interval is normal. QRS tang interval is normal. QT interval is normal. No Q waves. T waves are Normal. No ST changes noted. Clinical impression: NSR w/ Non-specific ST/T Changes and No evidence of ischemia. Interpreted by me. Reviewed by me. Administered Medications: 07/07 01:30 Drug: Ketorolac 30 mg Route: IVP; Site: left forearm; vc1 01:30 Drug: Benadryl (diphenhydrAMINE) 50 mg Route: IVP; Site: left forearm; vc1 01:45 Not Given (IV blew; pt refused another IV): Reglan (metoCLOPramide) 10 mg IVP once; vc1 over 1 to 2 minutes 01:45 Drug: Valium (diazepam) 5 mg Route: PO; vc1 01:46 Not Given (IV blew; pt refused new IVv): NS 0.9% 1000 ml IV at 1 bolus Per protocol; vc1 1000 mL bolus Disposition Summary: 07/07/22 01:45 Discharge Ordered Location: Home tang Problem: new tang Symptoms: have improved tang Condition: Stable tang Diagnosis - Headache tang - Weakness tang - Paraplegia tang Followup: tang - With: Private Physician - When: 2 - 3 days - Reason: Recheck today's complaints, Continuance of care, Re-evaluation by your physician Followup: tang - With: - When: 2 - 3 days - Reason: Recheck today's complaints, Re-evaluation by your physician Discharge Instructions: - Discharge Summary Sheet tang - General Headache Without Cause tang - Weakness tang - Weakness, [id number] tang - General Headache Without Cause, [id number] tang Forms: - Medication Reconciliation Form tang - Thank You Letter tang - Antibiotic Education tang - Prescription Opioid Use [facility] Prescriptions: - Zofran 4 mg Oral Tablet - take 1 tablet by ORAL route every 12 hours As needed; 20 tablet; Refills: 0, tang Product Selection Permitted - Valium 2 mg Oral Tablet - take 1 tablet by ORAL route every 8 hours As needed; 20 tablet; Refills: 0, [facility] Product Selection Permitted Signatures: Dispatcher [employer] Franklyn Hoff MD MD cha Calcote, Vanessa RN RN vc1 Khushi Matos RN RN kb3
[2022-07-07 02:03] VITALS: TEMP 97.5; O2SAT 98
[2022-07-07 02:04] VITALS: BP 91/58
--- NOTE | 2022-07-07 13:47 | EKG ---
Test Date: 2022-07-06 Test Time: 23:24:25 [employer] Dist[employer]: [employer] MEASUREMENT RESULTS: Intervals: Rate: 69 IA: 138 QRSD: 86 QT: 398 QTc: 426 [place]: P: 56 IA: 138 QRS: 47 T: 55 INTERPRETIVE STATEMENTS: Normal sinus rhythm Normal ECG Compared to ECG 01/24/2018 09:52:29 Sinus arrhythmia no longer present Electronically Signed On 07-07-22 13:46:27 [employer] by Hipolito Carey
--- NOTE | 2022-07-07 14:07 | RAD REPORT ---
EXAM DESCRIPTION: CT - Head C Spine Mpr Wo Con - 07/07/2022 6:38 am CLINICAL HISTORY: 37 years, Male, hickey COMPARISON: None FINDINGS: Multiple transaxial tomograms of the brain were obtained from the base of the skull to the vertex without contrast. 2-D multiplanar reformats and the coronal and sagittal plane were performed and reviewed. Multiple axial CT images through the cervical spine were obtained at 2 mm slice thickness at 2 mm int erval reconstruction. In addition 2-D multiplanar reformats and the sagittal coronal plane were perfo rmed and reviewed. This exam was performed according to our departmental dose-optimization protocol, which includes auto mated exposure control, adjustment of the mA and/or kV according to patient size and/or use of iterat fadumo reconstruction technique. CT head: Brain parenchyma as well as the blair and white matter differentiation demonstrate to be unre markable. There is no midline shift and/or mass effect. There is no evidence for acute hemorrhage and /or infarction. Lateral ventricles and cisterns displace normal appearance. No intra or extra axi al fluid collections were seen. The calvarium is intact with no evidence for fracture. The visualized portions of the paranasal sinuses and orbits demonstrate to be clear. CT C-spine: The alignment of the vertebral bodies are normal. There is anterior plate fixation device with intervertebral disc metallic cage fixation device at C7/T1. There is cerclage wire posterior sp inous process of C5-C7. There is posterior transpedicular screw fixation device at C7-T2. There is de formity of the dense/anterior aspect of C2 corresponding to most likely old healed fracture. There is no evidence of acute fracture/or subluxation. There is ossification/degenerative changes int ervertebral disc level of C5/C6 and C6/C7. The spinal canal demonstrate no evidence for significant s tenosis. Neural foramina demonstrate to be unremarkable. There is no prevertebral soft tissue swellin g. Sagittal coronal reformatted images demonstrate no subluxation or bony abnormalities. IMPRESSION: No evidence for acute hemorrhage, infarct or mass effect. No evidence for acute fracture/or subluxation of the cervical spine. Deformity of the anterior aspect of C2 corresponding to most likely old healed fracture. Anterior and posterior fusion of the cervical spine as described above. Electronically signed by: Álvaro Kumari MD 07/07/2022 12:44 AM [facility] Due to temporary technical issues with the PACS/Fluency reporting system, reports are being signed by the in house radiologists without review as a courtesy to insure prompt reporting. The interpreting radiologist is fully responsible for the content of the report.
--- NOTE | 2022-07-07 14:52 | RAD REPORT ---
EXAM DESCRIPTION: RAD - Chest Single View - 07/06/2022 11:23 pm CLINICAL HISTORY: 37 years, Male, COUGH COMPARISON: None FINDINGS: Single view of the chest was obtained portable. No prior films are available for compariso n. The cardiomediastinal silhouette demonstrate to be unremarkable. The heart is not enlarged. The th oracic aorta is unremarkable. The pulmonary vasculature is normal distribution. There is a questionab le nodular opacity within the right lower lung zone/or related to overlapping shadows from anterior r ight sixth costochondral junction. Anterior and posterior transpedicular fixation device lower cervic al spine. The rest of the soft tissue and bony structures demonstrate to be unremarkable. IMPRESSION: Questionable nodular opacity right lower lung zone/or related to overlapping shadows fro m the anterior right sixth costochondral junction. Consider CT scan of the chest without contrast. Electronically signed by: Álvaro Kumari MD 07/07/2022 12:24 AM [employer] Due to temporary technical issues with the PACS/Fluency reporting system, reports are being signed by the in house radiologists without review as a courtesy to insure prompt reporting. The interpreting radiologist is fully responsible for the content of the report.
== END 2022-07-07 01:59 | disposition home or self-care (01) ==
LOC: ER 22:25
DX: R51.9 Headache, unspecified (principal); R53.1 Weakness; G82.20 Paraplegia, unspecified; I95.9 Hypotension, unspecified
CPT/HCPCS: 93005; 70450; 72125; 71045; J2765; J1200; J7030

== ENCOUNTER 2024-04-24 17:48 | Emergency (ER) | payer OTHER ==
--- NOTE | 2024-04-24 20:40 | EDPHYS ---
Physician Documentation [facility] Name: Aston Conti Age: 39 yrs Sex: Male : 1985 Arrival Date: 04/24/2024 Time: 17:48 Bed Treatment Private MD: ED Physician Mg Teixeira HPI: 04/24 18:10 This 39 yrs old Male presents to ER via Wheelchair with complaints of Groin Pain - cp abscess. 20:40 Patient arrives today for induration of the right groin. Reported redness, states he ec2 had a small fluctuance that he drained himself. No fevers or chills, nausea or vomiting, otherwise no concerns.. 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 - Infectious Disease History:: Denies. - Social history:: Smoking status: Patient reports the use of cigarette tobacco products, smokes 0.25 packs per day. ROS: 20:14 Constitutional: Negative for body aches, chills, fever, poor PO intake, cp 20:14 Abdomen/GI: Negative for abdominal pain, vomiting, diarrhea, constipation, 20:14 Skin: Positive for abscess, of the right suprapubic, 20:14 Neuro: Negative for altered mental status, dizziness, headache, weakness, 20:14 All other systems are negative, 20:40 Constitutional: as per hpi ec2 Exam: 20:14 Head/Face: Normocephalic, atraumatic. cp 20:14 Constitutional: The patient appears in no acute distress, alert, awake, non-toxic, well developed, well nourished, 20:14 Chest/axilla: Inspection: normal, 20:14 Cardiovascular: Rate: normal, 20:14 Respiratory: the patient does not display signs of respiratory distress, Respirations: normal, no use of accessory muscles, no retractions, 20:14 Abdomen/GI: Inspection: large abscess right suprapubic with surrounding erythema, 20:14 Neuro: Orientation: to person, place \T\ time. Mentation: is normal, 20:40 Constitutional: GEN: NAD Head: atraumatic Eyes: EOMI Ears: External ears are ec2 normal. CV: regular rate LUNGS: no respiratory distress ABD: non-distended. : Induration noted in the right groin, no fluctuance appreciated, erythema, warmth noted. SKIN: no evidence of rashes MSK: no evidence of trauma Vital Signs: 18:08 BP 114 / 66; Pulse 84; Resp 16; Temp 97.7; Pulse Ox 96% ; Weight 75.75 kg; Height 6 ft. cm10 3 in. ; Pain 9/10; 21:00 BP 115 / 71; Pulse 72; Resp 16; Temp 97.3(TE); Pulse Ox 98% on R/A; tl4 18:08 Body Mass Index 20.87 (75.75 kg, 190.5 cm) cm10 18:08 Pain Scale: Adult cm10 MDM: 18:04 Patient medically screened. sb4 20:40 Data reviewed: vital signs. ED course: Patient arrives today for evaluation of right ec2 groin swelling. Examination remarkable for groin findings as noted above. Suspect cellulitis with induration. No fluctuance appreciated that I could express or perform incision and drainage. Patient is otherwise nontoxic-appearing without systemic symptoms and reassuring vital signs and does not require additional lab work at this time. Will discharge home, started on Bactrim [facility] Return precautions given peer . Administered Medications: 20:56 Drug: Trimethoprim-Sulfamethoxazole PO (160 mg-800 mg (DS) 1 tablet PO once Route: PO; tl4 21:01 Follow up: Response: No adverse reaction; Medication administered at discharge. tl4 Disposition: 20:40 I agree with the assessment and plan of care. I reviewed the patient's care provided by 2 Advanced Practice Provider \T\ agree w/ the diagnosis \T\ care plan. I personally saw the pt \T\ performed a substantive portion of the visit, incldng all aspects of the (History/Exam/Medical Decision Making). Disposition Summary: 04/24/24 20:39 Discharge Ordered Notes: Location: Home ec2 Condition: Stable ec2 Diagnosis - Cellulitis of groin ec2 Followup: ec2 - With: Private Physician - When: - Reason: Recheck today's complaints Discharge Instructions: - Discharge Summary Sheet ec2 - Cellulitis, Adult ec2 Forms: - Medication Reconciliation Form ec2 - Antibiotic Education ec2 - Prescription Opioid Use ec2 - Patient Portal Instructions ec2 - Leadership Thank You Letter ec2 Prescriptions: - Bactrim DS 800-160 mg Oral Tablet - take 1 tablet ORAL route every 12 hours for 10 days; 20 tablet; Refills: 0, ec2 Product Selection Permitted Signatures: Dispatcher [employer] EDDE Franklyn Fernandes PA PA cp Brown, Sophia, PA-C PA-C sb4 Jacque Gore RN RN cm10 Mg Teixeira MD MD ec2 Logdapenelope, JOSTIN Villar RN tl4 Corrections: (The following items were deleted from the chart) 18:08 18:08 Social history: Smoking status: Patient reports the use of cigarette tobacco cm10 products, smokes one-half pack cigarettes per day, cm10 20:52 20:13 Vital Signs ordered. cp tl4 20:54 20:13 Accucheck ordered. cp tl4 20:54 20:13 Cardiac monitoring ordered. cp tl4 20:54 20:13 EKG - Nurse/Tech ordered. cp tl4 20:54 20:13 IV Saline Lock - Large Bore ordered. cp tl4 20:54 20:13 Labs collected and sent ordered. cp tl4 20:54 20:13 Oxygen Per Protocol ordered. cp tl4 20:55 20:13 O2 Sat Monitoring ordered. cp tl4
--- NOTE | 2024-04-24 20:40 | ER ---
Nurse's Notes [facility] Name: Aston Conti Age: 39 yrs Sex: Male : 1985 Arrival Date: 04/24/2024 Time: 17:48 Bed Treatment Private MD: Diagnosis: Cellulitis of groin Presentation: 04/24 18:08 Chief complaint: Patient states: Abscess to right groin. Pt states that he was seen at [facility] and the abscess needed to be lanced but he left due to the long wait time. Coronavirus screen: Client denies travel out of the [place] in the last 14 days. At this time, the client does not indicate any symptoms associated with coronavirus-19. Ebola Screen: Patient denies travel to an Ebola-affected area in the 21 days before illness onset. No symptoms or risks identified at this time. Initial Sepsis Screen: Does the patient meet any 2 criteria? No. Patient's initial sepsis screen is negative. Does the patient have a suspected source of infection? No. Patient's initial sepsis screen is negative. Risk Assessment: Do you want to hurt yourself or someone else? Patient reports no desire to harm self or others. Onset of symptoms was April 24, 2024. 18:08 Method Of Arrival: Wheelchair cm10 18:08 Acuity: SONG 4 cm10 Triage Assessment: 18:09 General: Appears in no apparent distress. comfortable, Behavior is calm, cooperative. cm10 Neuro: No deficits noted. Level of Consciousness is awake, alert, obeys commands, Oriented to person, place, time, situation, Appropriate for age. Respiratory: No deficits noted. Airway is patent Respiratory effort is even, unlabored, Respiratory pattern is regular, symmetrical. 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 - Infectious Disease History:: Denies. - Social history:: Smoking status: Patient reports the use of cigarette tobacco products, smokes 0.25 packs per day. Screenin:59 [facility] ED Fall Risk Assessment (Adult) History of falling in the last 3 months, tl4 including since admission No falls in past 3 months (0 pts) Confusion or Disorientation No (0 pts) Intoxicated or Sedated No (0 pts) Impaired Gait No (0 pts) Mobility Assist Device Used No (0 pt) Altered Elimination No (0 pt) Score/Fall Risk Level 0 - 2 = Low Risk Oriented to surroundings, Maintained a safe environment, Educated pt \T\ family on fall prevention, incl call for assistance when getting out of bed, Assessed \T\ reinforced patient's understanding of fall precautions. Abuse screen: Denies threats or abuse. Denies injuries from another. Nutritional screening: No deficits noted. Tuberculosis screening: No symptoms or risk factors identified. Assessment: 20:58 General: Appears in no apparent distress. Behavior is calm, cooperative. Pain: tl4 Complains of pain in pelvis. Neuro: Level of Consciousness is awake, alert, obeys commands, Oriented to person, place, time, situation. Cardiovascular: Capillary refill < 3 seconds Patient's skin is warm and dry. Respiratory: Airway is patent Respiratory effort is even, unlabored, Respiratory pattern is regular, symmetrical. GI: No signs and/or symptoms were reported involving the gastrointestinal system. : No signs and/or symptoms were reported regarding the genitourinary system. EENT: No signs and/or symptoms were reported regarding the EENT system. Derm: Abscess located on pelvis. Musculoskeletal: No signs and/or symptoms reported regarding the musculoskeletal system. Vital Signs: 18:08 BP 114 / 66; Pulse 84; Resp 16; Temp 97.7; Pulse Ox 96% ; Weight 75.75 kg; Height 6 ft. cm10 3 in. ; Pain 9/10; 21:00 BP 115 / 71; Pulse 72; Resp 16; Temp 97.3(TE); Pulse Ox 98% on R/A; tl4 18:08 Body Mass Index 20.87 (75.75 kg, 190.5 cm) cm10 18:08 Pain Scale: Adult cm10 ED Course: 17:51 Patient arrived in ED. im 17:51 Elicia Heath PA-C is PHCP. sb4 17:51 Deepti Flores MD is Attending Physician. sb4 18:04 PHCP role handed off by Elicia Heath PA-C cp 18:04 Franklyn Fernandes PA is PHCP. cp 18:09 Triage completed. cm10 18:10 Arm band placed on Patient placed in waiting room. cm10 20:14 Mg Teixeira MD is Attending Physician. cp 20:36 Dorothy Ferro, RN is Primary Nurse. al5 20:59 Patient has correct armband on for positive identification. Bed in low position. Call tl4 light in reach. Side rails up X 1. Adult w/ patient. Provided Education on: call alfaro. 21:00 No provider procedures requiring assistance completed. Patient did not have IV access tl4 during this emergency room visit. Administered Medications: 20:56 Drug: Trimethoprim-Sulfamethoxazole PO (160 mg-800 mg (DS) 1 tablet PO once Route: PO; tl4 21:01 Follow up: Response: No adverse reaction; Medication administered at discharge. tl4 Medication: 20:59 VIS not applicable for this client. tl4 Outcome: 20:39 Discharge ordered by MD. ec2 21:00 Discharged to home via wheelchair, with family, tl4 21:00 Condition: stable 21:00 Discharge instructions given to patient, Instructed on discharge instructions, follow up and referral plans. medication usage, wound care, Demonstrated understanding of instructions, follow-up care, medications, wound care, Prescriptions given X 1, 21:01 Patient left the ED. tl4 Signatures: Franklyn Fernandes PA PA cp Brown, Sophia, PA-C PA-C sb4 Betty Gaston Clarissa, RN RN cm10 Mg Teixeira MD MD ec2 Jian Condon RN RN tl4 Dorothy Ferro RN RN al5 Corrections: (The following items were deleted from the chart) 18:08 18:08 Social history: Smoking status: Patient reports the use of cigarette tobacco cm10 products, smokes one-half pack cigarettes per day, cm10
[2024-04-24] MEDS ORDERED: SMZ./TMP. 800/160 MG TABLET ONE (20:53)
[2024-04-24 21:40] VITALS: BP 115/71; TEMP 97.3; O2SAT 98
== END 2024-04-24 21:01 | disposition home or self-care (01) ==
LOC: ER 17:48
DX: L03.314 Cellulitis of groin (principal); F17.210 Nicotine dependence, cigarettes, uncomplicated
CPT/HCPCS: 99283

== ENCOUNTER 2024-06-01 20:23 | Emergency (ER) | payer OTHER ==
--- NOTE | 2024-06-01 22:36 | RAD REPORT ---
EXAMINATION: US LEFT UPPER EXTREMITY VENOUS DOPPLER CLINICAL INDICATION: [facility] MAIN SWELLING Bed Name: [id number] TECHNIQUE: Complete bilateral duplex sonography of the LEFT upper extremity veins was performed. The examination included compression for vein patency, color Doppler imaging and flow augmentation in response to distal compression of the internal jugular, brachiocephalic, subclavian, axillary, brachi al, radial, ulnar, cephalic and basilic veins. COMPARISON: No prior exam. FINDINGS: Duplex sonography testing of the veins of the LEFT upper extremity was performed.There is evidence of thrombus present in the left brachial vein. IMPRESSION: Positive for thrombus in the left brachial vein.
--- NOTE | 2024-06-01 22:37 | RAD REPORT ---
EXAM: Extremity Nonvascular Limited HISTORY: [facility] MAIN L SWELLING Bed Name: [id number] COMPARISON: None TECHNIQUE: Sonographic grayscale and color flow imaging of the left inner arm including the region of interest as described by the patient. FINDINGS: Hypoechoic subcutaneous collection is present in the area of interest measuring 2.4 x 2.2 cm. This ma y represent inflammatory material or developing subcutaneous abscess.
[2024-06-01] MEDS ORDERED: LIDOCAINE 2% W/EPI 1:200,000 MPF 20 ML VIAL IM ONE (22:59)
[2024-06-01 23:10] LABS: PT Prothrombin Time 11.3 SECONDS (9.4-12.5); PTT, Activated Partial Thromb 30.4 SECONDS (24.3-36.9); Protime INR 1.01
[2024-06-01 23:18] LABS: Albumin 3.3 g/dL (3.4-5.0); Albumin/Globulin Ratio 0.9 (1.1-1.8); Anion Gap 8.7 mEq/L (5.0-15.0); Bilirubin Total 0.3 mg/dL (0.2-1.0); Globulin 3.6 g/dL (2.3-3.5); Potassium 3.7 mEq/L (3.5-5.1); Protein, Total 6.9 g/dL (6.4-8.2)
[2024-06-01 23:32] LABS: Absolute Eosinophils 0.1 K/uL (0-0.5); Absolute Monocytes 1.1 K/uL (0.1-1.3); Absolute Neutrophil 9.8 K/uL (1.8-8.0); Basophils % 0.4 % (0-1.3); Eosinophils % 0.7 % (0-4.4); Hematocrit 37.8 % (39.6-49.0); Hemoglobin 12.7 g/dL (13.6-17.9); Lymphocytes % 15.5 % (15.3-44.8); MCH 30.6 pg (27.0-35.0); MCHC 33.7 g/dL (32.0-36.0); MCV 90.9 fL (80-100); MPV 8.4 fL (7.6-11.3); Monocytes % 8.3 % (3.3-12.3); Neutrophils % 75.1 % (41.7-73.7); Platelets 299 thou/uL (152-406); RBC Red Blood Cell Count 4.16 M/uL (4.33-5.43); Red Cell Distribution Width 14.5 % (12.1-15.2)
[2024-06-02] MEDS ORDERED: SMZ./TMP. 800/160 MG TABLET ONE
[2024-06-02] MEDS ORDERED: LORazepam 2 MG/ML VIAL ONE
[2024-06-02] MEDS ORDERED: APIXABAN 5 MG TABLET ONE
[2024-06-02] MEDS ORDERED: KETOROLAC 30 MG/ML INJ ONE (00:01)
[2024-06-02] MEDS ORDERED: CLINDAMYCIN 900MG/D5W 900 MG/50 ML IVPB IV ONE (00:01)
--- NOTE | 2024-06-02 01:08 | ER ---
Nurse's Notes [facility] Name: Aston Conti Age: 39 yrs Sex: Male : 1985 Arrival Date: 06/01/2024 Time: 20:23 Bed 8 Private MD: Diagnosis: Cutaneous abscess of left upper limb;Cellulitis of left upper limb;Acute embolism and thrombosis of deep veins of left upper extremity Presentation: 06/01 20:37 Chief complaint: Patient states: Spider bite to left upper arm. Pt states that he cm10 noticed it 4 days ago and started taking some left over bactrim but ran out. Coronavirus screen: Client denies travel out of the [place] in the last 14 days. Ebola Screen: Patient denies travel to an Ebola-affected area in the 21 days before illness onset. No symptoms or risks identified at this time. Initial Sepsis Screen: Does the patient meet any 2 criteria? No. Patient's initial sepsis screen is negative. Does the patient have a suspected source of infection? No. Patient's initial sepsis screen is negative. Risk Assessment: Do you want to hurt yourself or someone else? Patient reports no desire to harm self or others. Onset of symptoms was June 01, 2024. 20:37 Method Of Arrival: Wheelchair cm10 20:37 Acuity: SONG 4 cm10 Triage Assessment: 20:39 Bite description: bite sustained to left tricep by a spider, animal information: cm10 vaccination(s) is not applicable. General: Appears in no apparent distress. comfortable, Behavior is calm, cooperative, appropriate for age. Pain: Complains of pain in left tricep Pain currently is 4 out of 10 on a pain scale. Neuro: No deficits noted. Level of Consciousness is awake, alert, obeys commands, Oriented to person, place, time, situation, Appropriate for age. Respiratory: No deficits noted. Airway is patent Respiratory effort is even, unlabored, Respiratory pattern is regular, symmetrical. Derm: Abscess located on left tricep. 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 - Infectious Disease History:: Denies. - Social history:: Smoking status: Patient reports the use of cigarette tobacco products, smokes 0.25 packs per day. Screenin:40 [facility] ED Fall Risk Assessment (Adult) History of falling in the last 3 months, cm10 including since admission No falls in past 3 months (0 pts) Confusion or Disorientation No (0 pts) Intoxicated or Sedated No (0 pts) Impaired Gait Yes (1 pt) Mobility Assist Device Used Yes (1 pt) Altered Elimination No (0 pt) Score/Fall Risk Level 0 - 2 = Low Risk Oriented to surroundings, Maintained a safe environment, Hourly rounding (assess needs \T\ fall precautionary measures) done. Abuse screen: Denies threats or abuse. Denies injuries from another. Nutritional screening: No deficits noted. Tuberculosis screening: No symptoms or risk factors identified. Assessment: 22:00 Reassessment: Patient and/or family updated on plan of care and expected duration. Pain br2 level reassessed. Patient is alert, oriented x 3, equal unlabored respirations, skin warm/dry/pink. General: Appears in no apparent distress. Behavior is calm, cooperative. Pain:. Derm: Skin ABSCES TO LEFT MEDIAL UPPER ARM....RECENT DRAINAGE Skin is moist, Skin is red, Skin temperature is warm Abscess located on left bicep is half dollar sized, has purulent drainage, is hot to touch, is red, is raised. 23:30 Reassessment: Patient and/or family updated on plan of care and expected duration. Pain br2 level reassessed. Patient is alert, oriented x 3, equal unlabored respirations, skin warm/dry/pink. Patient states feeling better. Patient states symptoms have improved. 06/02 01:30 Reassessment: Patient and/or family updated on plan of care and expected duration. Pain br2 level reassessed. Patient is alert, oriented x 3, equal unlabored respirations, skin warm/dry/pink. Patient denies pain at this time. Patient states feeling better. Patient states symptoms have improved. Vital Signs: 06/01 20:37 BP 113 / 70; Pulse 89; Resp 18; Temp 98.6(O); Pulse Ox 99% on R/A; Weight 77.11 kg; cm10 Height 6 ft. 3 in. ; Pain 4/10; 22:00 BP 100 / 59; Pulse 73; Resp 18; Temp 97.3; Pulse Ox 95% ; br2 23:30 BP 104 / 60; Pulse 72; Resp 18 S; Pulse Ox 96% on R/A; br2 06/02 01:30 BP 102 / 62; Pulse 70; Resp 16 S; Pulse Ox 96% on R/A; br2 06/01 20:37 Body Mass Index 21.25 (77.11 kg, 190.5 cm) cm10 06/01 20:37 Pain Scale: Adult cm10 ED Course: 06/01 20:37 Patient arrived in ED. cm10 20:38 Triage completed. cm10 20:40 Arm band placed on right wrist. Patient placed in waiting room. cm10 20:42 Franklyn Fernandes PA is PHCP. cp 20:42 Amador Chan MD is Attending Physician. cp 22:00 Patient has correct armband on for positive identification. Bed in low position. Call br2 light in reach. Side rails up X 1. Provided Education on: plan of care. 22:06 Elif Muniz, RN is Primary Nurse. br2 22:31 US Extrmty Nonvasular Limited: medial swelling left upper arm In Process Unspecified. EDMS 22:31 UPPER EXTREMITY VENOUS UNILATE In Process Unspecified. EDMS 22:52 Inserted saline lock: 20 gauge in right hand, using aseptic technique. Blood collected. br2 Flushed with 10 mL NS. 22:53 Blood Culture Adult (2) Sent. br2 22:53 CBC with Diff Sent. br2 22:53 CMP Sent. br2 22:53 Lactate w/ 2H reflex if indic. Sent. br2 22:53 Protime (+inr) Sent. br2 22:53 Ptt, Activated Sent. br2 23:03 Ptt, Activated Sent. br2 23:03 Protime (+inr) Sent. br2 23:03 Lactate w/ 2H reflex if indic. Sent. br2 23:03 CMP Sent. br2 06/02 01:20 No provider procedures requiring assistance completed. br2 01:30 IV discontinued, intact, bleeding controlled, No redness/swelling at site. Pressure br2 dressing applied. Administered Medications: 00:10 Drug: Clindamycin IVPB 900 mg IVPB once over 30 mins; (mix in 50 mL) Route: IVPB; br2 Infused Over: 30 mins; Site: right hand; 00:50 Follow up: Response: No adverse reaction; IV Status: Completed infusion; IV Intake: [id number] 00:10 Drug: Trimethoprim-Sulfamethoxazole PO (160 mg-800 mg (DS) 1 tablet PO once Route: PO; br2 01:00 Follow up: Response: No adverse reaction br2 00:10 Drug: Eliquis PO 10 mg PO once Route: PO; br2 01:00 Follow up: Response: No adverse reaction br2 00:10 Drug: Ketorolac IVP 15 mg IVP once Route: IVP; Site: right hand; br2 01:00 Follow up: Response: No adverse reaction br2 00:10 Drug: Ativan IVP 1 mg IVP once Route: IVP; Site: right hand; br2 01:00 Follow up: Response: No adverse reaction; Anxiety decreased br2 01:00 Drug: Lidocaine Infiltration (2 %) 10 ml 5 ml Infiltration once; with epinephrine br2 Volume: 5 ml; Route: Infiltration; 01:15 Follow up: Response: No adverse reaction br2 Medication: 06/01 20:40 VIS not applicable for this client. cm10 Intake: 06/02 00:50 IV: 50ml; Total: 50ml. br2 Outcome: 01:07 Discharge ordered by MD. cp 01:30 Discharged to home via wheelchair, with family, br2 01:30 Condition: improved 01:30 Discharge instructions given to patient, family, Instructed on discharge instructions, follow up and referral plans. medication usage, Demonstrated understanding of instructions, follow-up care, medications, Prescriptions given X 4, 01:33 Patient left the ED. br2 Signatures: Dispatcher [employer] EDME Franklyn Fernandes PA PA cp Martinez, Clarissa, RN RN cm10 Elif Muniz RN RN br2 Corrections: (The following items were deleted from the chart) 05:40 02:01 Patient left the ED. br2 br2
--- NOTE | 2024-06-02 01:08 | EDPHYS ---
Physician Documentation [facility] Name: Aston Conti Age: 39 yrs Sex: Male : 1985 Arrival Date: 06/01/2024 Time: 20:23 Bed 8 Private MD: ED Physician Amador Chan HPI: 06/01 21:15 This 39 yrs old Male presents to ER via Wheelchair with complaints of Insect Bite. cp 21:15 The patient or guardian complains of an abscess. The complaints affect the medial side cp of left bicep. Context: resulted from spider bite. Onset: The symptoms/episode began/occurred 4 day(s) ago. Associated signs and symptoms: Pertinent positives: erythema, pain, swelling, warmth, Pertinent negatives: fever. Severity of symptoms: in the emergency department the symptoms are actually worse. Patient reports he ran out of previously prescribed Bactrim that he took over past couple days. 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 - Infectious Disease History:: Denies. - Social history:: Smoking status: Patient reports the use of cigarette tobacco products, smokes 0.25 packs per day. ROS: 21:20 MS/extremity: Positive for erythema, pain, swelling, tenderness, of the left upper arm, cp 21:20 Constitutional: Negative for body aches, chills, fever, poor PO intake, cp 21:20 Cardiovascular: Negative for chest pain, palpitations, 21:20 Respiratory: Negative for cough, shortness of breath, wheezing, 21:20 Abdomen/GI: Negative for abdominal pain, vomiting, diarrhea, constipation, 21:20 Skin: Positive for of the medial side of left bicep, spider bite, 21:20 All other systems are negative, Exam: 21:25 Constitutional: The patient appears in no acute distress, alert, awake, non-toxic, well cp developed, well nourished, uncomfortable, 21:25 Head/Face: Normocephalic, atraumatic. cp 21:25 Eyes: Periorbital structures: appear normal, Conjunctiva: normal, no exudate, no injection, Lids and lashes: appear normal, bilaterally, 21:25 ENT: External ear(s): are unremarkable, Nose: is normal, Mouth: Lips: moist, Oral mucosa: pink and intact, moist, Posterior pharynx: Airway: no evidence of obstruction, patent, 21:25 Chest/axilla: Inspection: normal, 21:25 Cardiovascular: Rate: normal, Rhythm: regular, Pulses: Pulses are 2+ in left radial artery. 21:25 Respiratory: the patient does not display signs of respiratory distress, Respirations: normal, no use of accessory muscles, no retractions, labored breathing, is not present, Breath sounds: are clear throughout, no decreased breath sounds, no stridor, no wheezing, 21:25 Abdomen/GI: Inspection: abdomen appears normal, 21:25 Musculoskeletal/extremity: Extremities: noted in the left upper arm: Noted to the area of well-circumscribed erythema with central area of swelling and induration, noted tenderness to palpation and mild swelling, 21:25 Neuro: Orientation: to person, place \T\ time. Mentation: is normal, Vital Signs: 20:37 BP 113 / 70; Pulse 89; Resp 18; Temp 98.6(O); Pulse Ox 99% on R/A; Weight 77.11 kg; cm10 Height 6 ft. 3 in. ; Pain 4/10; 22:00 BP 100 / 59; Pulse 73; Resp 18; Temp 97.3; Pulse Ox 95% ; br2 23:30 BP 104 / 60; Pulse 72; Resp 18 S; Pulse Ox 96% on R/A; br2 06/02 01:30 BP 102 / 62; Pulse 70; Resp 16 S; Pulse Ox 96% on R/A; br2 06/01 20:37 Body Mass Index 21.25 (77.11 kg, 190.5 cm) cm10 06/01 20:37 Pain Scale: Adult cm10 Procedures: 01:05 I \T\ D: Incision and drainage was performed for an abscess of the medial left bicep cp Prepped with Betadine, Anesthetized with ml's 2% Lidocaine with epinephrine. 6 ml's 2% Lidocaine with epinephrine. Incised with #11 blade. Drained small amount purulent fluid. bloody fluid. Packed with iodoform gauze, Dressing: sterile 4x4 gauze, the patient tolerated the procedure well. MDM: 06/01 20:42 Medical Screening Exam initiated cp 06/02 01:06 Data reviewed: vital signs, nurses notes, lab test result(s), radiologic studies, cp ultrasound, and as a result, I will discharge patient. 01:06 Differential diagnosis: abscess, sepsis, cellulitis, dvt. Consideration of cp Admission/Observation Escalation of care including admission/observation considered. I considered the following discharge prescriptions or medication management in the emergency department Medications were administered in the Emergency Department. See MAR. Counseling: I had a detailed discussion with the patient and/or guardian regarding the historical points, exam findings, and any diagnostic results supporting the discharge/admit diagnosis, lab results, radiology results, the need for outpatient follow up, a family practitioner, to return to the emergency department if symptoms worsen or persist or if there are any questions or concerns that arise at home. Response to treatment: the patient's symptoms have mildly improved after treatment, and as a result, I will discharge patient. 06/01 21:05 Order name: Blood Culture Adult (2) cp 06/01 21:05 Order name: CBC with Diff; Complete Time: 23:36 cp 06/01 21:05 Order name: CMP; Complete Time: 23:26 cp 06/01 21:05 Order name: Lactate w/ 2H reflex if indic.; Complete Time: 23:26 cp 06/01 21:05 Order name: Protime (+inr); Complete Time: 23:26 cp 06/01 21:05 Order name: Ptt, Activated; Complete Time: 23:26 06/01 21:59 Order name: US Extrmty Nonvasular Limited: medial swelling left upper arm; Complete cp Time: 22:37 06/01 22:38 Interpretation: Report reviewed. 06/01 22:07 Order name: UPPER EXTREMITY VENOUS UNILATE; Complete Time: 22:37 EDMS 06/01 22:38 Interpretation: Report reviewed. 06/01 21:05 Order name: Accucheck; Complete Time: 22:53 cp 06/01 21:05 Order name: Cardiac monitoring; Complete Time: 00:22 cp 06/01 21:05 Order name: IV Saline Lock - Large Bore; Complete Time: 22:53 cp 06/01 21:05 Order name: Labs collected and sent; Complete Time: 22:53 cp 06/01 21:05 Order name: O2 Per Protocol; Complete Time: 23:04 cp 06/01 21:05 Order name: O2 Sat Monitoring; Complete Time: 23:04 cp 06/01 21:05 Order name: Vital Signs; Complete Time: 22:53 cp 06/01 22:40 Order name: I\T\D Setup; Complete Time: 23:03 cp Administered Medications: 00:10 Drug: Clindamycin IVPB 900 mg IVPB once over 30 mins; (mix in 50 mL) Route: IVPB; br2 Infused Over: 30 mins; Site: right hand; 00:50 Follow up: Response: No adverse reaction; IV Status: Completed infusion; IV Intake: [id number] 00:10 Drug: Trimethoprim-Sulfamethoxazole PO (160 mg-800 mg (DS) 1 tablet PO once Route: PO; br2 01:00 Follow up: Response: No adverse reaction br2 00:10 Drug: Eliquis PO 10 mg PO once Route: PO; br2 01:00 Follow up: Response: No adverse reaction br2 00:10 Drug: Ketorolac IVP 15 mg IVP once Route: IVP; Site: right hand; br2 01:00 Follow up: Response: No adverse reaction br2 00:10 Drug: Ativan IVP 1 mg IVP once Route: IVP; Site: right hand; br2 01:00 Follow up: Response: No adverse reaction; Anxiety decreased br2 01:00 Drug: Lidocaine Infiltration (2 %) 10 ml 5 ml Infiltration once; with epinephrine br2 Volume: 5 ml; Route: Infiltration; 01:15 Follow up: Response: No adverse reaction br2 Disposition: 23:38 Chart complete. cp Disposition Summary: 06/02/24 01:07 Discharge Ordered Notes: Location: Home cp Problem: new cp Symptoms: have improved cp Condition: Stable cp Diagnosis - Cutaneous abscess of left upper limb cp - Cellulitis of left upper limb cp - Acute embolism and thrombosis of deep veins of left upper extremity cp Followup: cp - With: Private Physician - When: 2 - 3 days - Reason: Wound Recheck Discharge Instructions: - Discharge Summary Sheet cp - Skin Abscess cp - Cellulitis, Adult cp - Deep Vein Thrombosis cp Forms: - Medication Reconciliation Form cp - Antibiotic Education cp - Prescription Opioid Use cp - Patient Portal Instructions cp - Leadership Thank You Letter cp Prescriptions: - Eliquis DVT-PE Treat 30D Start 5 mg (74 tabs) Oral Tablet, Dose Pack - take 5 milligram ORAL route per package directions take 2 tablets twice daily cp for 1 week, then 1 tablet twice daily; 90 tablet; Refills: 0, Product Selection Permitted - Clindamycin HCl 300 mg Oral Capsule - take 1 capsule ORAL route every 6 hours for 10 days; 40 capsule; Refills: 0, cp Product Selection Permitted - Tramadol 50 mg Oral Tablet - take 1 tablet ORAL route every 8 hours as needed; 12 tablet; Refills: 0, cp Product Selection Permitted - Bactrim DS 800-160 mg Oral Tablet - take 1 tablet ORAL route every 12 hours for 10 days; 20 tablet; Refills: 0, cp Product Selection Permitted Addendum: 06/05/2024 07:31 Co-signature as Attending Physician, Amador Chan MD I reviewed the patient's care r t provided by the Advanced Practice Provider and agree with the diagnosis and treatment plan. Signatures: Dispatcher [employer] EDSC Franklyn Fernandes PA PA cp Amador Chan MD MD rt Jacque Gore, RN RN cm10 Elif Muniz RN RN br2 Corrections: (The following items were deleted from the chart) 06/01 22:07 21:59 Extremity Venous [email or web address] ordered. [facility]
[2024-06-02 03:57] VITALS: BP 100/59; TEMP 97.3; O2SAT 95
== END 2024-06-02 02:01 | disposition home or self-care (01) ==
LOC: ER 20:23
PROC: 0H9CXZZ Drainage of Left Upper Arm Skin, External Approach (ICD-10-PCS; principal; 2024-06-02)
DX: L02.414 Cutaneous abscess of left upper limb (principal); L03.114 Cellulitis of left upper limb; I82.622 Acute embolism and thrombosis of deep veins of left upper extremity; F17.210 Nicotine dependence, cigarettes, uncomplicated
CPT/HCPCS: 36415; 76882; 80053; 83605; 85025; 85610; 85730; 87040; 93971; 96365; 96375; 99284